=== PATIENT | female | born 1980 | race Hispanic/Latino ===

== ENCOUNTER 2023-01-22 07:28 | Emergency (ER) | payer BC, OTHER ==
[~2023-01-22] VITALS: Ht 154.9 cm; Wt 81.6 kg
[2023-01-22] MEDS ORDERED: ONDANSETRON ODT4 MG PO (07:48)
== END 2023-01-22 08:00 | disposition home or self-care (01) ==
LOC: ER 07:33
DX: R11.0 Nausea (principal); R51.9 Headache, unspecified; Z82.3 Family history of stroke
CPT/HCPCS: 99283

== ENCOUNTER 2023-05-21 12:03 | Emergency (ER) | payer BC ==
[~2023-05-21] VITALS: Ht 154.9 cm; Wt 81.6 kg
[~2023-05-21 12:03] MED LIST: ONDANSETRON ODT4 MG PO
[2023-05-21 12:10] VITALS: O2SAT 97
[2023-05-21] MEDS ORDERED: SODIUM CHLORIDE 0.9% 1000ML 1,000 ML ONE (12:10)
[2023-05-21] MEDS ORDERED: KETOROLAC TROMETHAMINE 30 MG/ML VIAL ONE (12:10)
[2023-05-21] MEDS ORDERED: FAMOTIDINE 20 MG/2 ML VIAL IV ONE ×2 (12:10→12:15)
[2023-05-21] MEDS ORDERED: ONDANSETRON HCL INJ 2MG/ML 2ML 2 MG/ML VIAL ONE (12:10)
[2023-05-21] MEDS ORDERED: SODIUM CHLORIDE 0.9% 1000ML 1,000 ML IV STA (12:13)
[2023-05-21] MEDS ORDERED: ONDANSETRON HCL INJ 2MG/ML 2ML 2 MG/ML VIAL IV ONE (12:15)
[2023-05-21] MEDS ORDERED: KETOROLAC TROMETHAMINE 30 MG/ML VIAL IV ONE (12:15)
[2023-05-21] MEDS ORDERED: ONDANSETRON ODT4 MG PO (13:07)
[2023-05-21] MEDS ORDERED: FAMOTIDINE20 MG PO (13:07)
[2023-05-21] MEDS ORDERED: MAALOX MAXIMUM355 ML PO (13:07)
== END 2023-05-21 14:00 | disposition home or self-care (01) ==
LOC: FSED 12:06
DX: R11.2 Nausea with vomiting, unspecified (principal); K52.9 Noninfective gastroenteritis and colitis, unspecified; R10.30 Lower abdominal pain, unspecified; K76.0 Fatty (change of) liver, not elsewhere classified
CPT/HCPCS: 74176; 80048; 80076; 81003; 81025; 85025; 96374; 96375; 96376; 99284; J1885; J2405; J7030